=== PATIENT | female | born 1930 | race Caucasian/White ===

== ENCOUNTER 2016-11-05 13:23 | Inpatient (IN) | payer OTHER, MEDICARE ==
[~2016-11-05] VITALS: Ht 149.9 cm; Wt 56.0 kg
[2016-11-05] VITALS (7 sets, daily range): BP systolic 77–221; BP diastolic 50–91; PULSE 56–68; RESP 16–20; TEMP 97.8–98.9; O2SAT 94–98
[2016-11-05] MEDS: HEPARIN SODIUM - IV 10,000 UNITS/10 ML VIAL IV ONE ×2 (12:30→16:13)
[~2016-11-05 13:23] MED LIST: AMLO5TAB2 PO; ATOR40TA16 PO; CLOB0.0571 TOPICAL; DOCUSATE SODIUM 100 MG CAP PO PRN; HEPARIN-D5W 25,000 U/250 ML 250 ML IV PRN; LEVO75TA3 PO; LISI10TA3 PO; METO50TA PO; MORPHINE SULFATE 4 MG/ML INJ IV PUSH PRN; NITR1SUB3 SL; NITROGLYCERIN 0.4 MG SL 25 TABS/BTL SL PRN; OMEP40CA2 PO; ONDANSETRON HCL 4 MG/2 ML VIAL IV PUSH PRN; SODIUM CHLORIDE 0.9% FLUSH 10 ML FLUSH IV FLUSH PRN; amLODIPine BESYLATE 5 MG TAB PO SCH
[2016-11-05] MEDS ORDERED: cloNIDine HCL 0.1 MG TAB PO PRN (14:15)
[2016-11-05] MEDS ORDERED: cloNIDine HCL 0.1 MG TAB PO ONE (14:15)
[2016-11-05] MEDS ORDERED: HEPARIN 25,000 UNITS/D5W 250ML IV PRN (14:45)
[2016-11-05] MEDS ORDERED: SODIUM CHLOR 0.9% 1000 ML INJ 1,000 ML IV SCH (15:08)
[2016-11-05] MEDS ORDERED: DIAZEPAM 10 MG TAB PO SCH (15:15)
[2016-11-05] MEDS ORDERED: diphenhydrAMINE HCL 50 MG CAP PO SCH (15:15)
[2016-11-05] MEDS ORDERED: ASPIRIN 325 MG TAB PO SCH (15:15)
[2016-11-05] MEDS: ASPIRIN EC 81 MG TABEC PO SCH (16:24)
--- NOTE | 2016-11-05 17:29 | MB ---
cc: NORMA TRIPP DATE OF CONSULTATION: 11/05/2016 REASON FOR CONSULTATION: Unstable angina. HISTORY OF PRESENT ILLNESS: The patient is an 86 year-old female with a history of hypertension, diabetes, hyperlipidemia, coronary artery disease, who was in her usual state of health up until approximately two days prior to admission when she began to experience waxing and waning left-sided chest discomfort described as "pressure" associated with shortness of breath. The discomfort became especially severe very early this morning so she came to the emergency department in [place] for further evaluation and treatment. Cardiac enzymes were found to be slightly abnormal, so she was transferred to the [facility] for further testing. Since coming to the hospital, she has noted no further chest discomfort. She denies pleurisy, lightheadedness, syncope, near-syncope, paroxysmal nocturnal dyspnea, pedal edema. Rarely she experiences rapid racing palpitations without associated dizziness. For the most part, she is active. PAST MEDICAL HISTORY 1. Coronary artery disease with remote history of angioplasty done in [place]. 2. Hyperlipidemia. 3. Hypertension. 4. Diabetes. 5. Gastroesophageal reflux disease. 6. Hypothyroidism. CARDIAC MEDICATIONS AT HOME: 1. Lisinopril 10 mg daily. 2. Atorvastatin 40 mg q.h.s. 3. Metoprolol 50 mg b.i.d. 4. Amlodipine 5 mg daily. ALLERGIES NO KNOWN DRUG ALLERGIES. FAMILY HISTORY Noncontributory. SOCIAL HISTORY The patient denies any history of alcohol or tobacco abuse. REVIEW OF SYSTEMS: As in the history of present illness otherwise negative or noncontributory. She also denies headache, visual changes, abdominal pain, melena, dyspepsia, bright red blood per rectum, cough, wheezing. PHYSICAL EXAMINATION: On physical examination blood pressure 221/91 with a pulse of 68, respirations 20. GENERAL: she is a well-developed, well-nourished female in no acute distress. HEENT: Jugular venous pressure is normal. Carotid pulses are 2+ bilaterally and without bruits. CHEST: Examination of the chest reveals clear lung echeverria. CARDIAC: She has a regular rhythm and rate without S3-S4 or murmur. ABDOMINAL: She has a soft, nontender abdomen. Bowel sounds are present. There is no definite hepatosplenomegaly. EXTREMITIES: Examination of extremities reveals no clubbing, cyanosis or edema. Peripheral pulses are normal throughout. EKG image from the emergency room in [place] is pending. Reportedly shows sinus rhythm, nonspecific T-wave abnormality. Chest x-ray: Shows mild diffuse interstitial prominence with slight blunting of the right costophrenic angle. LABORATORY DATA: Laboratory data includes WBC 7.1, hemoglobin 13.5, platelets 297, potassium 3.7, BUN 23, creatinine 1.20, troponin 0.25. IMPRESSION: Symptoms most suggestive of unstable angina in this 86-year-old female with a history of known coronary disease status post percutaneous coronary intervention many years ago, history of diabetes, hypertension, hyperlipidemia, hypothyroidism. Initial troponin level is slightly abnormal. EKG from [place] is currently not available for review but reportedly shows no definite acute ST segment changes. In addition the patient may have an element of slight congestive heart failure. She has had increased dyspnea in the last 2-3 days with increased interstitial markings on her current chest x-ray. In light of the instability of her symptoms, the slightly abnormal troponin level, the possible congestive heart failure, I have recommended she undergo cardiac catheterization with possible percutaneous coronary intervention. The nature of this procedure and potential risks including but not limited to , myocardial infarction, stroke, arrhythmia, bleeding, infection, renal failure have been outlined to the patient. She and the family agreed to proceed. RECOMMENDATIONS 1. Continue beta gold therapy and hold off on KARMA inhibitor therapy given her mild renal insufficiency. 2. Try to achieve better blood pressure control. 3. Cardiac catheterization tomorrow. 4. Daily aspirin and continue the heparin drip. 5. Check a fasting lipid profile and continue statin therapy. MD ARMAAN Rizzo/EMILY /3:02 PM /5:15 PM CANDACE
[2016-11-05 17:39] LABS: APTT (PATIENT) 25.9 SEC (24.3-30.1)
[2016-11-05 17:49] LABS: CREATINE KINASE 150 U/L (26-192)
[2016-11-05 18:46] LABS: CKMB 5.9 NG/ML (0.5-3.6)
[2016-11-05 18:52] LABS: PROTHROMBIN TIME - PATIENT 10.5 SEC (9.8-11.6)
[2016-11-05] MEDS: SODIUM CHLORIDE 0.9% FLUSH 10 ML FLUSH IV FLUSH SCH (21:00)
[2016-11-05] MEDS ORDERED: METOPROLOL TARTRATE 50 MG TAB PO SCH (21:00)
[2016-11-05] MEDS ORDERED: ATORVASTATIN 40 MG TAB PO SCH (21:00)
[2016-11-05] MEDS: METOPROLOL TARTRATE 50 MG TAB PO SCH (21:00)
[2016-11-06] VITALS (20 sets, daily range): BP systolic 120–140; BP diastolic 70–86; PULSE 40–72; RESP 16–20; TEMP 97.8–98.6; O2SAT 97–100
[2016-11-06 01:04] LABS: HEMATOCRIT 39.6 % (35.0-46.0); MEAN CELL VOLUME 76.8 FL (80.0-100.0); MEAN CORPUSCULAR HEMOGLOBIN 24.2 PG (27.0-34.0); MEAN CORPUSCULAR HGB CONC 31.6 % (32.0-36.0); PLATELET COUNT 247 TH/MM3 (150-450); RED BLOOD COUNT 5.16 MIL/MM3 (4.00-5.30); RED CELL DISTRIBUTION WIDTH 15.6 % (11.6-17.2); REVIEW FLAG FINAL; WHITE BLOOD COUNT 6.8 TH/MM3 (4.0-11.0)
[2016-11-06] MEDS ORDERED: LEVOTHYROXINE SODIUM 75 MCG TAB PO SCH (06:00)
--- NOTE | 2016-11-06 06:47 | HHI.HP ---
[facility] Non-Staff Admission Diagnosis Diagnoses: Travel History International Travel<30 Days: No Contact w/Intl Traveler <30 Da: No Traveled to Known Affected Are: No History of Present Illness History from patient, with her son at the bedside as heel blacker. Patient reported that she has been having coughing for the past 2 days. This was associated with chest pains which she described as midsternal, pressure -like, with radiation to her neck. Denies any diaphoresis or nausea. Denies any fever. The cough was productive of whitish sputum. Heart from the above, patient denies any recent nausea/vomiting/diarrhea/ urinary burning or pain on urination. Denies any hematemesis/hematochezia/melena/hematuria. Pleasant syncopal episodes. Patient reports of history of angioplasty which she had many years ago, at least 8 years ago. Son reported that last year she has had similar symptoms with cough and chest pain for which she was hospitalized at a hospital in [place]. The son is not sure what type of ischemic workup was done at that time. Patient used to be on aspirin. However she stopped taking this 3 months ago because she is afraid of having GI ulcers. Son reported the patient also has been short of breath in the past few weeks. He reports of associated bilateral lower extremity swelling. They attributed this to arthritis. Patient denies any pain or orthopnea. Stated she has to take breaks every time she walks around because of shortness of breath. Review of Systems Except as stated in HPI: all other systems reviewed are Neg Past Family Social History Past Medical History htn cad hypothyroidism Past Surgical History angioplasties Allergies: Coded Allergies: No Known Allergies (Verified Allergy, Unknown, 11/05/16) Family History none that she knows of Social History never smoked occasional etoh no drugs Physical Exam Vital Signs Vital Signs Date Time Temp Pulse Resp B/P (MAP) Pulse Ox O2 Delivery O2 Flow Rate FiO2 11/06/16 04:00 57 11/06/16 03:30 97.8 57 16 120/70 (87) 97 11/05/16 23:30 98.0 56 16 115/68 (84) 96 11/05/16 20:00 97.8 66 16 77/50 (59) 97 80/51 (61) 11/05/16 18:23 60 18 99/59 (72) 96 11/05/16 15:00 68 11/05/16 14:23 98.9 68 20 221/91 (134) 94 11/05/16 14:00 66 Physical Exam GENERAL: This is a well-nourished, well-developed patient, in no apparent distress. SKIN: No rashes, ecchymoses or lesions. Cool and dry. HEAD: Atraumatic. Normocephalic. No temporal or scalp tenderness. EYES: No scleral icterus. No injection or drainage. ENT: Nose without bleeding, purulent drainage or septal hematoma.. Airway patent. NECK: Trachea midline. No JVD CARDIOVASCULAR: Regular rate and rhythm without murmurs, gallops, or rubs. RESPIRATORY: Clear to auscultation. Breath sounds equal bilaterally. No wheezes , rales, or rhonchi. GASTROINTESTINAL: Abdomen soft, non-tender, nondistended. . No guarding. MUSCULOSKELETAL: Extremities without clubbing, cyanosis, or edema. No calf tenderness. NEUROLOGICAL: Awake and alert. Motor and sensory grossly within normal limits. Normal speech. Laboratory Laboratory Tests Test 11/05/16 17:03 11/06/16 00:36 Prothrombin Time 10.5 Prothromb Time International Ratio 1.0 Activated Partial Thromboplast Time 25.9 79.0 Total Creatine Kinase 150 Creatine Kinase MB 5.9 Troponin I 0.64 Result Diagram: 11/05/16 0036 Caprini VTE Risk Assessment Caprini VTE Risk Assessment: Mod/High Risk (score >= 2) Caprini Risk Assessment Model Point Value = 1 Point Value = 2 Point Value = 3 Point Value = 5 Age 41-60 Minor surgery BMI > 25 kg/m2 Swollen legs Varicose veins or History of unexplained or recurrent spontaneous Oral contraceptives or hormone replacement Sepsis (< 1 month) Serious lung disease, including pneumonia (< 1 month) Abnormal pulmonary function Acute myocardial infarction Congestive heart failure (< 1 month) History of inflammatory bowel disease Medical patient at bed rest Age 61-74 Arthroscopic surgery Major open surgery (> 45 min) Laparoscopic surgery (> 45 min) Malignancy Confined to bed (> 72 hours) Immobilizing plaster cast Central venous access Age >= 75 History of VTE Family history of VTE Factor V Leiden Prothrombin 50808S Lupus anticoagulant Anticardiolipin antibodies Elevated serum homocysteine Heparin-induced thrombocytopenia Other congenital or acquired thrombophilia Stroke (< 1 month) Elective arthroplasty Hip, pelvis, or leg fracture Acute spinal cord injury (< 1 month) Prophylaxis Regimen Total Risk Factor Score Risk Level Prophylaxis Regimen 0-1 Low Early ambulation 2 Moderate Order ONE of the following: *Sequential Compression Device (SCD) *Heparin 5000 units SQ BID 3-4 Higher Order ONE of the following medications: *Heparin 5000 units SQ TID *Enoxaparin/Lovenox 40 mg SQ daily (WT < 150 kg, CrCl > 30 mL/min) *Enoxaparin/Lovenox 30 mg SQ daily (WT < 150 kg, CrCl > 10-29 mL/min) *Enoxaparin/Lovenox 30 mg SQ BID (WT < 150 kg, CrCl > 30 mL/min) AND/OR *Sequential Compression Device (SCD) 5 or more Highest Order ONE of the following medications: *Heparin 5000 units SQ TID (Preferred with Epidurals) *Enoxaparin/Lovenox 40 mg SQ daily (WT < 150 kg, CrCl > 30 mL/min) *Enoxaparin/Lovenox 30 mg SQ daily (WT < 150 kg, CrCl > 10-29 mL/min) *Enoxaparin/Lovenox 30 mg SQ BID (WT < 150 kg, CrCl > 30 mL/min) AND *Sequential Compression Device (SCD) Assessment and Plan Assessment and Plan Impression: Non-ST elevation WI Possible early pneumonia Plan: Serial cardiac enzymes and EKGs. Laboratory and. Heparin drip per ACS protocol. Patient was evaluated by cardiology. Plans for angiogram in a.m. Patient's chest x-raypersonal acute infiltrates/pulmonary edema/pneumothorax. For now, I would hold off on antibiotics unless patient has documented fevers. DVT prophylaxis on heparin GI prophylaxis on pantoprazole Discussed Condition With patient, ER MD, patient's son and nursing staff Physician Certification 2 Midnight Certification Type: Admission for Inpatient Services Order for Inpatient Services The services are ordered in accordance with Medicare regulations or non- Medicare payer requirements, as applicable. In the case of services not specified as inpatient-only, they are appropriately provided as inpatient services in accordance with the 2-midnight benchmark. Estimated LOS (days): 2 days is the estimated time the patient will need to remain in the hospital, assuming treatment plan goals are met and no additional complications. Post-Hospital Plan: Home Timothy Lord MD Nov 06, 2016 06:47
[2016-11-06 08:05] LABS: HDL CHOLESTEROL 57.1 MG/DL (40.0-60.0)
[2016-11-06] MEDS: METOPROLOL TARTRATE 50 MG TAB PO SCH (10:39)
[2016-11-06] MEDS: PANTOPRAZOLE SOD 40 MG DELAYED RELEASE TAB PO SCH (10:40)
[2016-11-06] MEDS: ASPIRIN EC 81 MG TABEC PO SCH (10:40)
[2016-11-06] MEDS: amLODIPine BESYLATE 5 MG TAB PO SCH (10:40)
[2016-11-06] MEDS: SODIUM CHLORIDE 0.9% FLUSH 10 ML FLUSH IV FLUSH SCH ×2 (10:45→21:00)
[2016-11-06 13:10] LABS: APTT (PATIENT) 43.2 SEC (24.3-30.1)
[2016-11-06] MEDS ORDERED: HEPARIN-NS/PF INJ 1,000 ML ONE (13:26)
[2016-11-06] MEDS ORDERED: MIDAZOLAM HCL 2 MG/2 ML VIAL ONE (13:26)
[2016-11-06] MEDS ORDERED: HEPARIN SODIUM - IV 10,000 UNITS/10 ML VIAL ONE (13:46)
[2016-11-06] MEDS ORDERED: MISC INFORMATION XX ONE (14:15)
--- NOTE | 2016-11-06 14:21 | CATHPROC ---
Roll20 HIS Report Study Information Study Number Admission Scheduled Start Study Start [id number] Nov 05 2016 1:33PM 11/06/2016 Nov 06 2016 1:21PM [place] Service Cardiac Catheterization Admit Source Facility Department Emergency department [facility] Physician and Clinical Staff Initial Brooks Robison Ceo & Founder Enma Elizondo RN Recorder Louis Escamilla,RT(R) ScrGini Odell,RT(R) (BS) Procedures Performed Procedure Location (Site) Vessel Name Coronary Angiograms LCA Left Coronary Coronary Angiograms RCA Right Coronary Equipment Time Horse Race Timer Description Size Mfg Part Number Used/Scraped TRANSDUCER, TRUWAVE [id number] 13:55 URRUTIA COELLO * Used W/STOCKCOCK *[id number] *[id number] 201300 13:55 MALLINCKRODT SYRINGE, ANGIOMAT 150ML 150ML *[id number] Used 2SUB MEDICAL CONCEPT DRAPE, RADIAL FEMORAL FULL 13:55 * [id number] *[id number] Used DEVELOPMENT BODY [id number] 13:55 Video Furnace PACK, CCL CUSTOM * Used *[id number] 13:55 Video Furnace SUPPORT, ARTERIAL ADULT 29518 *[id number] Used [id number] 13:55 High Tower Software PACER PEN, SKIN DUAL W/ RULER * Used *[id number] BAND, RADIAL COMPRESSION TR [id number] 14:06 Game Closure 24CM Used SHORT 24 *[id number] SHEATH, FR6 RADIAL PRELUDE 13:55 Game Closure FR 6 [id number] Used EASE 11CM [id number] 13:55 Game Closure WIRE, EXCHANGE 260CM 3MMJ 260CM Used *[id number] 13:55 NAMIC MANIFOLD, 4 PORT * Used *[id number] 13:55 NYCOMED OMNIPAQUE, 350 MG, 150ML 150ML [id number] Used [id number] 13:55 Bugcrowd BLANKET,WARM AIR CCL * Used *[id number] CATHETER, FR5 OPTITORQUE [id number] 13:56 LightUp FR 5 Used RADIAL TIG 4.0 *[id number] History: Allergies Allergy Reaction No Known Allergies History: Risk Factors Family History of Hypertension Dyslipidemia Previous SC Previous Heart Failure Premature CAD Yes Yes No Yes No Prior Valve Prior PCI Prior PCIDate Prior CABG Surgery No Yes 02/24/2008 No Cerebrovascular Peripheral Artery Chronic Lung On Dialysis Diabetes Diabetes Therapy Disease Disease Disease No No No No Yes Oral History: Stress Tests Stress or Imaging Studies Performed No History: Other Current Smoker No Labs Hgb (g/dl) Hct (%) WBC (l/cumm) Platelets (thousands) 11.60-17.00 35.00-51.00 4.00-11.00 150.00-450.00 13.5 42.7 7.1 297 Glucose (mg/dl) BUN (mg/dl) Creatinine (mg/dl) BUN:Creatinine (1:x) 74.00-106.00 7.00-18.00 0.50-1.30 10.00-20.00 103 23 1.2 19.2 Na (meq/l) K (meq/l) 136.00-145.00 3.50-5.10 137 3.7 INR (PTT:PT) 0.90-1.10 1 Troponin I (ng/ml) CPK-MB (ng/ML) 0.02-0.05 0.50-3.60 0.64 Not Drawn Medication Medication Total Dose (Bolus/Oral) Medication Total Dosage/Unit 1% XYLOCAINE 5 mL RADIAL COCKTAIL 3.5 mL (Bolus) VERSED 2 mg Medications (Bolus/Oral) Medication Time Given Dosage/Unit Administered By Reason 1% XYLOCAINE 11/06/2016 1:52:27 PM 5 mL Brooks Elder 5 mL 1% XYLOCAINE given in lab by Brooks Elder in Right Radial via Subcutaneous. Ordered by Akbar Eldern. VERSED 11/06/2016 1:52:50 PM 2 mg Enma Elizondo 2 mg VERSED given in lab by Enma Elizondo, KYLAH in Right Antecubital via Peripheral IV. Ordered by Brooks Mike. RADIAL COCKTAIL 11/06/2016 1:54:59 PM 3.5 mL (Bolus) Enma Elizondo 3.5 mL (Bolus) RADIAL COCKTAIL given in lab by Enma Elizondo, KYLAH via Radial. Using [Solution Name]. Ordered by Brooks Elder. 200mcg nitro, 2500u haparin Medication (Drip) Medication Time Given Dosage/Unit Concentration/Unit Diluent (ml) Solution IV Solutions 11/06/2016 1:29:00 PM 0 mL (IV) 500 NaCl .9 Patient arrived on IV Solutions given by Brooks Elder in Left Antecubital via Peripheral IV. Pump/Dri p Flow = 100 ml/hr using NaCl .9. Ordered by Brooks Elder. Initial Case Assessment Cardiovascular HR Rhythm Chest Pain 67 sr 0 Edema Present Skin color Skin None Normal Warm Dry Circulatory - Right Pulses Dorsalis Pedis Femoral Radial 1 2 2 Scale (0,1,2,3,4,d) Scale (0,1,2,3,4,d) Neurological State Oriented to time-place- Alert Moves all extremities person Respiration - General Respiration Rate SpO2 (%) O2 (lpm) (B/min) 18 98 0 Chronological Log Time Study Chronological Log 13:21:55 Patient arrived via Bed. Positive Allens test performed by Louis Escamilla. 13:21:57 Patient Name, D.O.B, / Armband Verified By R.N. 13:21:59 Consent signed by the physician and the patient and verified by the [facility] staff. 13:22:00 Pre-op and post- op instructions given; patient acknowledges understanding of instructions. 13:22:27 Verbal Stimulation=2 Physical Stimulation=2 Airway=2 Respiration=2 TOTAL=8. (0=absent, 1=li mited, 2=present) 13:23:01 Patient has been NPO for More than 6Hrs. 13:23:02 Skin Breakdown-none present per patient. 13:23:23 Patient Warmer Placed on the Table. 13:28:51 A # 20 IV was noted in the Antecubital (left). Grade = 0 Patient arrived on IV Solutions given by Brooks Elder in Left Antecubital via Peripheral IV. Pu mp/Drip Flow = 100 ml/hr 13:29:00 using NaCl .9. Ordered by Brooks Elder. 13:29:24 History and physical on the chart or being dictated. Vitals capture started with the following parameters, Patient=Adult, Interval=5 min, Initial Pr lyizdh=533 mmHg, 13:29:49 Deflation Rate=5 mmHg, Cuff placed on Right Arm Assessment: Initial Case, HR=67 BPM, Rhythm=sr, Chest Pain=0, Edema=None, Color=Normal, Skin = Warm, Dry Right Pulses: Ramos Ped=1, Femoral=2, Radial=2 13:29:53 Neurological: State=Alert, Ox3, WOLF Respiration: Resp=18 B/min, SpO2=98 %, O2=0 lpm 13:30:32 Right groin and right radial prepped with 2% chlorhexidine, and with a 3 min. waiting time. 13:31:01 HR=57 bpm, ENAE=367/75 mmhg, SpO2=97.0 %, Resp=19 B/min, Al=2 13:36:12 HR=52 bpm, CMPJ=100/75 mmhg, SpO2=96.0 %, Resp=24 B/min, Al=2 13:37:01 Reference ECG taken 13:40:28 HR=52 bpm, RSOW=948/82 mmhg, SpO2=96.0 %, Resp=24 B/min, Al=2 13:42:21 MD paged 13:44:06 Pressure channel 1 zeroed. 13:45:32 HR=50 bpm, GLJB=193/84 mmhg, SpO2=99.0 %, Resp=18 B/min, Al=2 13:48:49 MD arrived. 13:50:33 HR=49 bpm, BMUI=524/75 mmhg, ZkK2=223.0 %, Resp=17 B/min, Al=2 Time Out. Correct patient, correct procedure,correct physician, ,power injector not loaded with contrast with surgical 13:51:22 team present. Time Out Concurred by MD, individual staff and MILITARY SOURCE OPERATIONS SPECIALIST in procedure. Not loaded at t his time. 13:52:13 Presedation re-assessment performed by [facility] RN. 13:52:15 Case Start 13:52:17 Verbal Stimulation=2 Physical Stimulation=2 Airway=2 Respiration=2 TOTAL=8. (0=absent, 1=li mited, 2=present) 13:52:27 5 mL 1% XYLOCAINE given in lab by Brooks Elder in Right Radial via Subcutaneous. Ordered by Brooks Elder. 13:52:50 2 mg VERSED given in lab by Enma Elizondo, KYLAH in Right Antecubital via Peripheral IV. Ord ered by Brooks Elder. 13:54:04 Access site was Radial Artery. right radial A SHEATH, FR6 RADIAL PRELUDE EASE 11CM FR 6 was advanced into the Radial (right) using the Perc utaneous 13:54:52 technique. 3.5 mL (Bolus) RADIAL COCKTAIL given in lab by Enma Elizondo, KYLAH via Radial. Using [Solution Name]. Ordered by 13:54:59 Brooks Elder. 200mcg nitro, 2500u haparin 13:55:32 HR=53 bpm, OLPN=736/74 mmhg, YlZ2=704.0 %, Resp=38 B/min, Al=2 A CATHETER, FR5 OPTITORQUE RADIAL TIG 4.0 FR 5 was advanced over a wire. OMNIPAQUE, 350 MG, 150 ML 150ML 13:55:58 was used for injections. 13:57:06 The LCA was injected and visualized at various angles. OMNIPAQUE, 350 MG, 150ML 150ML used . Recorded Pressure: Ao, HR=55, Condition=Condition 1 13:57:21 (Aorta) Ao 110/63/82 13:59:29 The RCA was injected and visualized at various angles. OMNIPAQUE, 350 MG, 150ML 150ML used . After removing the current catheter a MPA-2 INFINITI CATHETER FR 6 was advanced over a WIRE, EX CHANGE 260CM 14:00:24 3MMJ 260CM. 14:00:25 HR=57 bpm, NIBP=98/60 mmhg, SpO2=98.0 %, Resp=26 B/min, Al=2 Recorded Pressure: LV, HR=57, Condition=Condition 1 14:01:57 (Left Ventricle) LV 111/4/10 Recorded Pressure: LV, Ao, HR=57, Condition=Condition 1 14:02:12 (Left Ventricle) LV 108/-1/12, (Aorta) Ao 107/57/77 14:02:49 Catheter was removed 14:03:27 Case End Radial Compression Device Used. 13 mLs of air placed in BAND, RADIAL COMPRESSION TR SHORT 24 2 4CM. Affected 14:04:32 hand 98 % O2 saturation. 14:06:02 HR=54 bpm, XDAH=944/69 mmhg, SpO2=95.0 %, Resp=22 B/min, Al=2 14:07:33 No case complications noted. 14:07:35 Cine recording checked. 14:07:38 Bedside Report will be given. 14:07:42 Contrast Scanned 14:10:31 HR=52 bpm, VDJW=762/63 mmhg, SpO2=96.0 %, Resp=18 B/min, Al=2 14:14:42 Vitals capture stopped. 14:14:44 Patient moved to stretcher End Study - Contrast Media Used In Study Contrast Total Opened (mL) Total Used (mL) Total Wasted (mL) Omnipaque 30 30 0 End Study - Maximum Contrast Load Max Contrast Load (mL) 235.4 End Study - Radiation Exposure Fluoro Time (minutes) 2.0 End Study - Patient Disposition Complications Transferred To Telemetry Bed
--- NOTE | 2016-11-06 14:33 | PD.CARD.PN ---
Subjective Subjective Remarks Denies further CP. No dyspnea, dizziness. Objective Medications Item Value Date Time Amlodipine 10 mg 11/06/16 0900 Besylate DAILY/PO 11/06/16 1040 (Norvasc) Atorvastatin 40 mg 11/05/16 2100 Calcium HS/PO 11/05/16 2100 (Lipitor) Metoprolol 75 mg 11/05/16 2100 Tartrate BID/PO 11/06/16 1039 (Lopressor) Aspirin 81 mg 11/05/16 1515 (Ecotrin Ec) DAILY/PO 11/06/16 1040 Vital Signs / I&O Vital Signs Date Time Temp Pulse Resp B/P (MAP) Pulse Ox O2 Delivery O2 Flow Rate FiO2 11/06/16 13:00 40 11/06/16 12:00 40 11/06/16 11:00 42 11/06/16 11:00 97.9 60 20 134/74 (94) 100 11/06/16 10:00 50 11/06/16 09:23 97.8 62 20 123/80 (94) 97 11/06/16 09:00 62 11/06/16 08:00 60 11/06/16 07:00 60 11/06/16 04:00 57 11/06/16 03:30 97.8 57 16 120/70 (87) 97 11/05/16 23:30 98.0 56 16 115/68 (84) 96 11/05/16 20:00 97.8 66 16 77/50 (59) 97 80/51 (61) 11/05/16 18:23 60 18 99/59 (72) 96 11/05/16 15:00 68 I/O 11/05/16 11/05/16 11/05/16 11/06/16 11/06/16 11/06/16 07:00 15:00 23:00 07:00 15:00 23:00 Intake Total 440 ml 240 ml 30 ml Output Total 600 ml Balance -160 ml 240 ml 30 ml Intake Oral 440 ml 240 ml IV Total 30 ml Output Urine Total 600 ml # Voids 2 Physical Exam GENERAL: Well developed, well nourished. No acute distress. HEENT: Jugular venous pressure is normal. CHEST: Lungs clear to auscultation anteriorly. CARDIAC: Regular rate and rhythm without S3, S4, or murmur. ABDOMEN: Soft, nontender, no hepatosplenomegaly. Bowel sounds present. EXTREMITIES: No clubbing, cyanosis, or edema. Laboratory Laboratory Tests Test 11/05/16 17:03 11/06/16 00:36 11/06/16 06:46 11/06/16 12:45 Prothrombin Time 10.5 SEC Prothromb Time International Ratio 1.0 RATIO Activated Partial Thromboplast Time 25.9 SEC 79.0 SEC 43.2 SEC Total Creatine Kinase 150 U/L Creatine Kinase MB 5.9 NG/ML Troponin I 0.64 NG/ML Triglycerides Level 66 MG/DL Cholesterol Level 216 MG/DL LDL Cholesterol 146 MG/DL HDL Cholesterol 57.1 MG/DL Cholesterol/HDL Ratio 3.78 RATIO Assessment and Plan Problem List: (1) CAD (coronary artery disease) ICD Codes: I25.10 - Atherosclerotic heart disease of [place] coronary artery without angina pectoris Status: Chronic Plan: Stable overnight. Cath today shows no high grade CAD. She does have 50 % prox LAD disease, 40% ostial PDA lesion. EF low normal ~50%. REC continue current medications including daily aspirin OK to discharge home today, f/u with cook box filler in [facility] (2) Hyperlipidemia ICD Codes: E78.5 - Hyperlipidemia, unspecified Status: Chronic Plan: Very suboptimal lipid profile. Rec increase atorvastatin to 80 mg qhs. (3) Hypertension ICD Codes: I10 - Essential (primary) hypertension Status: Chronic Plan: Stable. Normotensive. Code Status full code Discussed Condition With patient's son Problem Qualifiers (1) CAD (coronary artery disease): Qualified Codes: I25.119 - Atherosclerotic heart disease of [place] coronary artery with unspecified angina pectoris (2) Hyperlipidemia: Qualified Codes: E78.2 - Mixed hyperlipidemia (3) Hypertension: Qualified Codes: I10 - Essential (primary) hypertension Brooks Elder MD Nov 06, 2016 14:33
[2016-11-06] MEDS ORDERED: IOHEXOL 350 MG/ML 50 ML BTL (for Cath Lab) OTHER ONE (14:37)
--- NOTE | 2016-11-06 14:39 | MA ---
cc: NORMA TRIPP M.D. DATE: 11/06/2016 TYPE OF PROCEDURE Left heart catheterization, selective coronary angiography, left ventriculography. PROCEDURE NOTE The patient was brought to the cardiac catheterization laboratory in fasting state after having signed informed consent. The right radial region was prepped and draped as per policy and anesthetized with 1% lidocaine. Arterial access was obtained via the right radial artery and a 6-German sheath placed. Coronary arteriography was performed using a tiger catheter. Left ventriculography was done using a multipurpose catheter. There were no apparent immediate complications. A radial artery compression band was applied to her right wrist at the end of the case to achieve hemostasis. HEMODYNAMIC RESULTS Left ventricle 108 with an end-diastolic pressure of 12. Aorta 107/57 with a mean of 77. There was no significant transvalvular aortic gradient on pullback of the pigtail catheter. CORONARY ARTERIOGRAPHY The left main may have up to 20% ostial stenosis. The left anterior descending is diffusely diseased. There is likely up to 50% proximal stenosis. There is diffuse disease of the midvessel resulting in up to 15% stenosis. The distal LAD has minimal luminal irregularities. The LAD gives rise to three very small diagonals, the first of which may have up to 30% ostial stenosis. The left circumflex is a very small nondominant vessel giving rise to a very small obtuse marginal. Minimal disease is evident in the proximal left circumflex. The right coronary artery is a very large dominant vessel which is diffusely diseased. There are likely multiple areas of up to 10-15% stenosis in the proximal and midvessel. The posterior descending artery is a relatively large caliber vessel with 40% ostial stenosis. LEFT VENTRICULOGRAPHY Contrast injection of the left ventricle reveals no definite segmental wall motion abnormalities. Ejection fraction is estimated at 50%. CONCLUSION 1. Overall moderate two-vessel coronary artery disease with no definite high-grade stenosis. 2. Low normal left ventricular systolic function with estimated ejection fraction of 50%. MD ARMAAN Rizzo/gm /2:11 PM /2:31 PM [facility]
--- NOTE | 2016-11-06 16:57 | EKG ---
Date Performed: 11/05/2016 Time Performed: 20:59:18 PTAGE: 86 years EKG: Sinus arrhythmia Lateral T wave changes are nonspecific Borderline ECG NO PREVIOUS TRACING DOCTOR: Ej Spaulding Interpretating Date/Time 11/06/2016 16:55:41
[2016-11-06] MEDS ORDERED: ATORVASTATIN 40 MG TAB PO SCH (21:00)
[2016-11-07] VITALS (14 sets, daily range): BP systolic 145–155; BP diastolic 92–99; PULSE 53–68; RESP 16; TEMP 98–98.2; O2SAT 96–97
[2016-11-07] MEDS ORDERED: METOPROLOL TARTRATE 50 MG TAB PO SCH (09:00)
[2016-11-07] MEDS: PANTOPRAZOLE SOD 40 MG DELAYED RELEASE TAB PO SCH (09:16)
[2016-11-07] MEDS: ASPIRIN EC 81 MG TABEC PO SCH (09:16)
[2016-11-07] MEDS: SODIUM CHLORIDE 0.9% FLUSH 10 ML FLUSH IV FLUSH SCH (09:16)
[2016-11-07] MEDS: amLODIPine BESYLATE 5 MG TAB PO SCH (09:16)
--- NOTE | 2016-11-07 10:40 | HHI.PR ---
Objective Vitals Vital Signs Date Time Temp Pulse Resp B/P (MAP) Pulse Ox O2 Delivery O2 Flow Rate FiO2 11/07/16 10:00 66 11/07/16 09:00 68 11/07/16 08:00 65 11/07/16 07:30 98.2 63 16 155/99 (117) 97 11/07/16 07:00 62 11/07/16 06:00 64 11/07/16 05:00 56 11/07/16 04:00 60 11/07/16 03:40 98.0 60 16 145/92 (109) 96 11/07/16 03:00 62 11/07/16 02:00 60 11/07/16 01:00 56 11/07/16 00:00 62 11/06/16 23:30 98.2 58 16 140/86 (104) 97 11/06/16 23:00 54 11/06/16 22:00 72 11/06/16 21:00 60 11/06/16 20:00 60 11/06/16 20:00 98.6 58 16 138/77 (97) 99 11/06/16 19:00 56 11/06/16 18:09 55 11/06/16 17:09 50 11/06/16 16:00 40 11/06/16 16:00 98.4 50 18 123/78 (93) 100 11/06/16 15:00 42 11/06/16 13:00 40 11/06/16 12:00 40 11/06/16 11:00 42 11/06/16 11:00 97.9 60 20 134/74 (94) 100 I/O 11/06/16 11/06/16 11/06/16 11/07/16 11/07/16 11/07/16 07:00 15:00 23:00 07:00 15:00 23:00 Intake Total 240 ml 30 ml 1340 ml 480 ml Output Total 1700 ml 300 ml Balance 240 ml 30 ml -360 ml 180 ml Intake Oral 240 ml 340 ml 480 ml IV Total 30 ml 1000 ml Output Urine Total 1700 ml 300 ml # Voids 2 2 # Bowel Movements 0 Result Diagram: 11/05/16 0036 Emir Santiago MD Nov 07, 2016 10:40
[2016-11-07] MEDS ORDERED: ASPI-99 PO (11:29)
[2016-11-07] MEDS ORDERED: METO25TA3 PO (11:29)
--- NOTE | 2016-11-07 11:31 | HHI.DCPOC ---
Discharge Care Plan Diagnosis: (1) Elevated troponin (2) CAD (coronary artery disease) (3) Hyperlipidemia (4) Hypertension Goals to Promote Your Health * To prevent worsening of your condition and complications * To maintain your health at the optimal level Directions to Meet Your Goals Take your medications as prescribed Follow your dietary instruction Follow activity as directed Keep your appointments as scheduled Take your immunizations and boosters as scheduled If your symptoms worsen call your PCP, if no PCP go to Urgent Care Center or Emergency Room Smoking is Dangerous to Your Health. Avoid second hand smoke Call the 24-hour hour crisis hotline for domestic abuse at Emir Santiago MD Nov 07, 2016 11:31
--- NOTE | 2016-11-07 12:06 | HHI.DS ---
Discharge Summary Admission Date Nov 05, 2016 at 13:33 Discharge Date: Nov 07, 2016 Admitting Diagnosis (1) CAD (coronary artery disease) ICD Code: I25.10 - Atherosclerotic heart disease of [place] coronary artery without angina pectoris Status: Chronic (2) Elevated troponin ICD Code: R74.8 - Abnormal levels of other serum enzymes (3) Hypertension ICD Code: I10 - Essential (primary) hypertension Status: Chronic (4) Hyperlipidemia ICD Code: E78.5 - Hyperlipidemia, unspecified Status: Chronic Procedures Heart catheterization Brief History - From Admission History of present illness from the admitting physician History from patient, with her son at the bedside as institution librarian. Patient reported that she has been having coughing for the past 2 days. This was associated with chest pains which she described as midsternal, pressure -like, with radiation to her neck. Denies any diaphoresis or nausea. Denies any fever. The cough was productive of whitish sputum. Heart from the above, patient denies any recent nausea/vomiting/diarrhea/ urinary burning or pain on urination. Denies any hematemesis/hematochezia/melena/hematuria. Pleasant syncopal episodes. Patient reports of history of angioplasty which she had many years ago, at least 8 years ago. Son reported that last year she has had similar symptoms with cough and chest pain for which she was hospitalized at a hospital in [place]. The son is not sure what type of ischemic workup was done at that time. Patient used to be on aspirin. However she stopped taking this 3 months ago because she is afraid of having GI ulcers. Son reported the patient also has been short of breath in the past few weeks. He reports of associated bilateral lower extremity swelling. They attributed this to arthritis. Patient denies any pain or orthopnea. Stated she has to take breaks every time she walks around because of shortness of breath. CBC/BMP: 11/05/16 0036 Significant Findings Laboratory Tests Test 11/05/16 00:36 11/05/16 17:03 11/06/16 00:36 11/06/16 06:46 Mean Corpuscular Volume 76.8 FL (80.0-100.0) Mean Corpuscular Hemoglobin 24.2 PG (27.0-34.0) Mean Corpuscular Hemoglobin Concent 31.6 % (32.0-36.0) Total Creatine Kinase 312 U/L (26-192) Creatine Kinase MB 8.0 NG/ML (0.5-3.6) 5.9 NG/ML (0.5-3.6) Troponin I 1.04 NG/ML (0.02-0.05) 0.64 NG/ML (0.02-0.05) Activated Partial Thromboplast Time 79.0 SEC (24.3-30.1) Cholesterol Level 216 MG/DL (120-200) LDL Cholesterol 146 MG/DL (0-99) Test 11/06/16 12:45 Activated Partial Thromboplast Time 43.2 SEC (24.3-30.1) PE at Discharge GENERAL: This is a well-nourished, well-developed patient, in no apparent distress. CARDIOVASCULAR: Normal rate and regular rhythm without murmurs, gallops, or rubs. RESPIRATORY: Good respiratory efforts. Breath sounds equal and clear to auscultation bilaterally. GASTROINTESTINAL: Abdomen soft, non-tender, non-distended. Normal active bowel sounds MUSCULOSKELETAL: Extremities without cyanosis, or edema. NEURO: Alert & Oriented x4 to person, place, time, situation. Moves all ext x4 PSYCH: Appropriate mood and affect. Pt update on day of discharge Patient seen with her son at bedside. Reports she is feeling well. Anxious to go home. Hospital Course 86-year-old female with CAD admitted for elevated cardiac enzymes in the setting of dyspnea. Patient was followed by cardiology. She underwent heart catheterization which did not show high-grade CAD. She does have 50% proximal LAD and 40% PDA disease. Medical management was advised. Patient is to continue on aspirin, lisinopril, and statin. Her heart rate has been too low to tolerate a beta gold. 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 Patient's chronic home medications were continued for hypertension and hyperlipidemia. Pt Condition on Discharge: Good Discharge Disposition: Discharge Home Discharge Time: <= 30 minutes Discharge Instructions DIET: Follow Instructions for: Heart Healthy Diet Activities you can perform: Regular-No Restrictions Follow up Referrals: Cardiology - 2 Weeks New Medications: Aspirin (Adult Aspirin EC Low Strength) 81 Mg Tabec 81 MG PO DAILY, #30 TAB Continued Medications: Amlodipine (Amlodipine) 5 Mg Tab 5 MG PO DAILY for Blood Pressure Management, #30 TAB 0 Refills Atorvastatin (Atorvastatin) 40 Mg Tab 40 MG PO HS for Cholesterol Management, #30 TAB 0 Refills Clobetasol Emollient Topical (Clobetasol Emollient Topical) 0.05% Cream 1 APPLIC TOPICAL BID, #15 GM 0 Refills Levothyroxine (Levothyroxine) 75 Mcg Tab 75 MCG PO DAILY for Thyroid, #30 TAB 0 Refills Lisinopril (Lisinopril) 10 Mg Tab 10 MG PO DAILY, #30 TAB 0 Refills Nitroglycerin SL (Nitroglycerin SL) 0.4 Mg Subl 0.4 MG SL DIRECTED PRN for CHEST PAIN, #100 TAB.SL 0 Refills ONE TABLET UNDER THE TONGUE NEEDED FOR CHEST PAIN, MAY REPEAT EVERY FIVE MINUTES FOR A TOTAL OF 3 DOSES OR CALL 911 IF NO RELIEF Omeprazole (Omeprazole) 40 Mg Cap 40 MG PO DAILY, #30 CAP 0 Refills Emir Santiago MD Nov 07, 2016 12:06
== END 2016-11-07 12:06 | disposition home or self-care (01) | DRG 280 ==
LOC: NEDDLT 13:23 → HCIN 13:33
PROVIDERS: ADMIT Family Medicine; ATTEND Family Medicine
PROC: B2111ZZ Fluoroscopy of Multiple Coronary Arteries using Low Osmolar Contrast (ICD-10-PCS; 2016-11-06)
PROC: B2151ZZ Fluoroscopy of Left Heart using Low Osmolar Contrast (ICD-10-PCS; 2016-11-06)
PROC: 4A023N7 Measurement of Cardiac Sampling and Pressure, Left Heart, Percutaneous Approach (ICD-10-PCS; principal; 2016-11-06 13:45)
DX: I21.4 Non-ST elevation (NSTEMI) myocardial infarction (principal); J81.0 Acute pulmonary edema; E11.9 Type 2 diabetes mellitus without complications; I10 Essential (primary) hypertension; I25.110 Atherosclerotic heart disease of native coronary artery with unstable angina pectoris; E03.9 Hypothyroidism, unspecified; M19.90 Unspecified osteoarthritis, unspecified site; E78.2 Mixed hyperlipidemia; K21.9 Gastro-esophageal reflux disease without esophagitis; Z98.61 Coronary angioplasty status
CPT/HCPCS: 71020; 80053; 80061; 81001; 82550; 82552; 83880; 84443; 84484; 85025; 85027; 85610; 85730; 87070; 87077; 87186; 87205; 93005; 93458; 99285; C1769; C1893; J1644; J2250; J7030; Q9967